=== PATIENT | female | born 2000 | race Caucasian/White ===

== ENCOUNTER 2023-07-27 17:13 | Observation (INO) | payer MEDICAID, SELFPAY ==
[2023-07-27] VITALS (37 sets, daily range): BP systolic 106–136; BP diastolic 54–95; PULSE 64–111; RESP 14–19; TEMP 36.6–37.3; O2SAT 90–100; BMI 25.9
--- NOTE | ~2023-07-27 | US_ITS ---
CORRECTED REPORT exam description [facility] 07/28/23 This report was recreated on 07/28/23. Original report was EXAMINATION: US OB <= 14 weeks fetus w TV DATE: 07/27/2023 18:20 INDICATION: Vaginal bleeding during first trimester TECHNIQUE: Real-time pelvic transabdominal and transvaginal ultrasound was performed. COMPARISON: None. FINDINGS: The uterus measures 9.5 x 4.9 x 6.2 cm. No intrauterine gestational sac is identified. There is a complex, multiseptated cystic and solid masslike area within the endometrial canal. The right ovary measures 2.8 x 1.8 x 2.4 cm. The left ovary measures 3.2 x 2.0 x 2.4 cm. There is a 1.6 x 1.1 cm hypoechoic area within the left ovary which could reflect a hemorrhagic cyst or corpus luteum. There is normal vascular flow in the ovaries. There is a moderate amount of free fluid in the left adnexa. IMPRESSION: 1. Multiseptated cystic and solid masslike area within the endometrial canal likely reflecting retained products of failed . FELT WASHING MACHINE TENDER evaluation is recommended. Reviewed, dictated and finalized at location F. MTDD IMPRESSION: 1. Multiseptated cystic and solid masslike area within the endometrial canal li reggie reflecting retained products of failed . FELT WASHING MACHINE TENDER evaluation is recomm ended.
--- NOTE | 2023-07-27 17:24 | ED.PREGNANCY ---
HPI - General Chief complaint: Vaginal Bleeding Stated complaint: vag bleed Source: patient, EMS and RN notes reviewed Mode of arrival: EMS Limitations: no limitations History of Present Illness HPI Narrative: This is 23 year old female who presents for evaluation of vaginal bleeding from miscarriage. PAtient is . She is unsure of her LMP. She states she was told 1 month ago that she was going to have miscarriage when she was evaluated at [facility]. She states that she believes she started to miscarry yesterday because she started having heaving vaginal bleeding. She reports she was evaluated at [facility] ER yesterday for her vaginal bleeding. She reports labs were drawn but she was discharged home. She reports she is passing large clots. She has continued to pass large clots today so she came to ER. She denies abdominal pain or cramping. She reports chronic dizziness due to bicuspid aortic valve. She denies any other medical problems. Related Data Allergies Allergy/AdvReac Type Severity Reaction Status Date / Time amoxicillin Allergy Nausea Verified 07/27/23 17:21 morphine AdvReac Swelling Verified 07/27/23 17:21 Review of Systems Constitutional: Constitutional: Denies weakness Cardiovascular: Cardiovascular: Denies syncope, Denies rapid heart rate, Denies irregular heart rhythm, Denies leg edema and Denies dyspnea Respiratory: Respiratory: Denies chest congestion, Denies hemoptysis, Denies excessive phlegm production and Denies dyspnea Gastrointestinal: Gastrointestinal: Denies abdominal pain, Denies hematochezia, Denies diarrhea and Denies vomiting Genitourinary: Genitourinary: Reports abnormal vaginal bleeding, Denies hematuria and Denies dysuria Musculoskeletal: Musculoskeletal: Denies joint swelling, Denies loss of height and Denies muscle weakness Neurologic: Denies syncope, Denies focal weakness and Denies weakness PMFSH Past Medical History Medical History (Updated 07/27/23 @ 19:01 by Usha Klein MD) Bicuspid aortic valve Surgical History Surgical History (Updated 07/27/23 @ 18:58 by Usha Klein MD) H/O dilation and curettage Social History Social History (Updated 07/27/23 @ 17:28 by Usha Klein MD) Smoking status: Never smoker Exam Const: General: no acute distress and alert Nutritional Appearance: well nourished Orientation/consciousness: patient oriented x3 HENMT: Head: normal to inspection Eyes: EOM: EOMs intact bilaterally Neck: Neck: normal visual inspection Chest: Chest palpation & inspection: normal inspection of the chest Resp: Effort & Inspection: normal respiratory effort Auscultation: clear to auscultation bilaterally Cardio: Rate: regular rate Rhythm: regular rhythm Heart sounds: no murmurs GI: GI Palp: Yes Soft to palpation, No Tenderness to palpation present (GI), No Guarding due to palpation present (GI) and No Rigid due to palpation Auscultation: normal bowel sounds : Speculum Exam - Vagina: vaginal bleeding (mild dark vaginal bleeding in vault, small clot in cervix os) Speculum Exam - Cervix: Cervical os closed Skin: General skin exam: normal color Rashes: no rashes Wounds: no wounds Neuro: General: patient oriented x3, moves all extremities and CN's II-XI intact bilaterally Extrem: General: normal to inspection Psych: Mental Status: mental status grossly normal Affect: Sad affect present Course Reevaluation(s) Reevaluation #1: I discussed with patient recommendations. she is agreeable to obs tonight for d and C for miscarriage. Date: 07/27/23 Time: 18:59 Consultations Consultation #1: I Discussed case with Dr. Guy patent litigation associate for OBGYN. US shows Retain products of conceptions. He recommends D and C if patient is willing. He accepts patient to his service. Date: 07/27/23 Time: 18:58 Vital Signs Vital signs: Vital Signs Pulse Rate 98 07/27/23 17:16 Respiratory Rate 18 07/27/23 17:16 Bloo
--- NOTE | 2023-07-27 17:57 | PC.NURSE ---
Pt to ultrasound.
[2023-07-27 17:58] LABS: Basophils Absolute Auto 0.1 K/mm3 (0.0-0.1); Basophils Percent Auto 0.6 % (0.2-1.2); Eosinophils Absolute Auto 0.1 K/mm3 (0-0.3); Hematocrit 36.2 % (37.0-47.0); Hemoglobin 12.1 g/dL (12.0-15.0); Immature Granulocyte Absolute 0.06 K/mm3 (0.00-0.031); Immature Granulocyte Percent A 0.5 % (0-0.5); Lymphocytes Absolute Auto 2.91 K/mm3 (0.9-3.2); Lymphocytes Percent Auto 26.5 % (18.3-44.2); Mean Corpuscular HGB Conc 33.4 g/dl (32-36); Mean Corpuscular Hemoglobin 29.8 pg (26-34); Mean Corpuscular Volume 89.2 fl (80-100); Mean Platelet Volume 11.5 fl (7.4-10.4); Monocytes Absolute Auto 0.9 K/mm3 (0.1-0.6); Monocytes Percent Auto 8.2 % (2.6-8.5); Neutrophils Percent Auto 63.2 % (45.5-73.1); Platelet Count Result 227 k/mm3 (150-375); Red Blood Count 4.06 M/mm3 (4.2-5.4); Red Cell Distribution Width 12.3 % (11.5-14.5)
[2023-07-27 18:09] LABS: Alanine Aminotransferase 20 U/L (6-35); Albumin Level 4.4 g/dL (3.5-5.1); Alkaline Phosphatase 88 U/L (38-126); Anion Gap 8 mmol/L (8-16); Aspartate Amino Transferase 28 U/L (14-36); Bilirubin,Total 1.1 mg/dL (0.2-1.3); Blood Urea Nitrogen 9 mg/dL (7-17); Carbon Dioxide 21 mmol/L (22-30); Chloride 106 mmol/L (98-107); Estimated Glomerular Filt Rate > 60; Glucose 108 mg/dL (65-110); Potassium 3.6 mmol/L (3.4-5.0); Sodium 135 mmol/L (137-145)
[2023-07-27 18:26] LABS: Beta HCG Quantitative < 2.39 mIU/ML
[2023-07-27] MEDS: SODIUM CHLORIDE 0.9% IV 1,000 ML 999 ML IV CONT (18:53)
--- NOTE | 2023-07-27 20:00 | PC.NURSE ---
Pt to room 113 per ER staff. Vital signs taken. Pt states that she has minor cramping and back pain that she rates a 1 on 1-10 scale. 1 small dime-sized spot of bright red blood noted on pad.
--- NOTE | 2023-07-27 22:18 | PM.IMHP ---
H&P: HPI History of Present Illness Date/Time: 07/27/23 22:18 Chief Complaint: Bleeding in Narrative: 23-year-old who presents to the emergency room with vaginal bleeding in . Patient has had no care in this . Patient states her last menstrual period was in February. 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 She states she was seen at [facility] in March and was told she was going to have a miscarriage. Patient never followed up with any medical provider. Patient states she started having vaginal bleeding yesterday. Patient states she has had heavy bleeding throughout the day. Patient states every time she stands she has a large gush of blood. Patient states she went to [facility] yesterday. Patient states they hien her blood and said her vital signs and hemoglobin were stable. She states she never received an ultrasound. Patient does report feeling dizzy and fatigued. Patient had an ultrasound in our emergency room which showed a multi septated cystic structure with solid components within the endometrium with solid components. Review of Systems Cardiovascular: Cardiovascular: Denies chest pain, Denies leg edema, Denies palpitations, Denies dyspnea and Denies dyspnea on exertion Respiratory: Respiratory: Denies cough, Denies dyspnea and Denies dyspnea on exertion Gastrointestinal: Gastrointestinal: Denies abdominal pain, Denies constipation, Denies diarrhea, Denies nausea and Denies vomiting Genitourinary: Genitourinary: Reports abnormal vaginal bleeding, Denies hematuria, Denies urinary frequency, Denies dysuria, Denies pelvic pain, Denies urinary incontinence and Denies vaginal discharge Neurologic: Reports system reviewed and no additional complaints, except as documented Psychiatric: Psychiatric: Reports no additional psychiatric complaints Endocrine: Endocrine: Denies palpitations PMFSH Past Medical History Medical History (Updated 07/27/23 @ 19:01 by Usha Klein MD) Bicuspid aortic valve Surgical History Surgical History (Updated 07/27/23 @ 18:58 by Usha Klein MD) H/O dilation and curettage Social History Social History (Updated 07/27/23 @ 17:28 by Usha Klein MD) Smoking status: Never smoker Meds Home Medications and Allergies Allergies Allergy/AdvReac Type Severity Reaction Status Date / Time amoxicillin Allergy Nausea Verified 07/27/23 17:21 morphine AdvReac Swelling Verified 07/27/23 17:21 Vital Signs Vital Signs - 24 hr 07/27/23 17:16 07/27/23 19:18 07/27/23 19:30 Temperature 97.8 F Pulse Rate 98 64 74 Respiratory Rate 18 14 15 Blood Pressure 136/95 H 121/74 119/58 L Pulse Oximetry 97 100 99 Oxygen Delivery Room Air 07/27/23 19:51 07/27/23 21:12 07/27/23 21:15 Temperature Pulse Rate 75 81 80 Respiratory Rate Blood Pressure 125/63 120/85 125/59 L Pulse Oximetry 95 Oxygen Delivery 07/27/23 21:17 07/27/23 21:22 07/27/23 21:27 Temperature Pulse Rate Respiratory Rate Blood Pressure Pulse Oximetry 99 94 96 Oxygen Delivery 07/27/23 21:30 07/27/23 21:32 07/27/23 21:37 Temperature Pulse Rate 84 Respiratory Rate Blood Pressure 114/55 L Pulse Oximetry 96 97 Oxygen Delivery 07/27/23 21:42 07/27/23 21:45 07/27/23 21:47 Temperature Pulse Rate 94 Respiratory Rate Blood Pressure 117/68 Pulse Oximetry 99 99 Oxygen Delivery 07/27/23 21:52 07/27/23 21:57 07/27/23 22:00 Temperature Pulse Rate 79 Respiratory Rate Blood Pressure 106/54 L Pulse Oximetry 100 98 Oxygen Delivery 07/27/23 22:02 07/27/23 22:07 07/27/23 22:12 Temperature Pulse Rate Respiratory Rate Blood Pressure Pulse Oximetry 99 99 99 Oxygen Delivery 07/27/23 22:15 07/27/23 22:17 Temperature Pulse Rate 85 Respiratory Rate Blood Pressure 117/70 Pulse Oximetry 90 Oxygen Delivery Exam Const:
[2023-07-27] MEDS: LACTATED RINGERS 1,000 ML 999 ML IV CONT (22:55)
[2023-07-27] MEDS: ceFAZolin 2 GM/D5W 50 ML 2 GM/50 ML BAG IVPB (23:29)
--- NOTE | 2023-07-27 23:35 | WPDANESEPPF ---
Anes - Initial Pre Proc Eval Procedure: Operation Date: 07/27/23 23:00 Proposed Procedures p D&C Suction and Sharp - J Luis Guy MD Date/Time: 07/27/23 23:35 Surgeon: J Luis Guy MD Pre Op Diagnosis: Missed ,Retained Products of Conception Patient Data Age: 23 Gender: F Height: Weight: 79.3 kg Last Vital Signs Temp 36.6 C 07/27/23 19:18 Pulse 88 07/27/23 22:30 Resp 15 07/27/23 19:30 BP 122/64 07/27/23 22:30 Pulse Ox 100 07/27/23 23:11 O2 Del Method Room Air 07/27/23 17:16 Allergies Allergy/AdvReac Type Severity Reaction Status Date / Time amoxicillin Allergy Nausea Verified 07/27/23 17:21 morphine AdvReac Swelling Verified 07/27/23 17:21 Laboratory Tests 07/27/23 17:45 WBC 11.0 H K/mm3 (4.5-10.0) RBC 4.06 L M/mm3 (4.2-5.4) Hgb 12.1 g/dL (12.0-15.0) Hct 36.2 L % (37.0-47.0) MCV 89.2 fl (80-100) MCH 29.8 pg (26-34) MCHC 33.4 g/dl (32-36) RDW 12.3 % (11.5-14.5) Plt Count 227 k/mm3 (150-375) MPV 11.5 H fl (7.4-10.4) Immature Gran % (Auto) 0.5 % (0-0.5) Neut % (Auto) 63.2 % (45.5-73.1) Lymph % (Auto) 26.5 % (18.3-44.2) [place] % (Auto) 8.2 % (2.6-8.5) Eos % (Auto) 1.0 % (0-4.4) Baso % (Auto) 0.6 % (0.2-1.2) Lymph # (Auto) 2.91 K/mm3 (0.9-3.2) [place] # (Auto) 0.9 H K/mm3 (0.1-0.6) Eos # (Auto) 0.1 K/mm3 (0-0.3) Baso # (Auto) 0.1 K/mm3 (0.0-0.1) Abs Immat Gran (auto) 0.06 H K/mm3 (0.00-0.031) Absolute Neuts (auto) 7.0 H K/mm3 (1.3-6.7) Absolute Nucleated RBC 0.0 K/mm3 (0.0-0.012) Nucleated RBC % 0.0 % (0.0-0.2) Sodium 135 L mmol/L (137-145) Potassium 3.6 mmol/L (3.4-5.0) Chloride 106 mmol/L (98-107) Carbon Dioxide 21 L mmol/L (22-30) Anion Gap 8 mmol/L (8-16) BUN 9 mg/dL (7-17) Creatinine 0.60 L mg/dL (0.7-1.0) Estim Creat Clear Calc Not Reportable Estimated GFR > 60 (59 - ) Glucose 108 mg/dL (65-110) Calcium 9.0 mg/dL (8.4-10.2) Total Bilirubin 1.1 mg/dL (0.2-1.3) AST 28 U/L (14-36) ALT 20 U/L (6-35) Alkaline Phosphatase 88 U/L (38-126) Total Protein 8.0 g/dL (6.3-8.2) Albumin 4.4 g/dL (3.5-5.1) Beta HCG, Quant < 2.39 mIU/ML Blood Type O Positive Antibody Screen Negative Screen TNP Baby's Blood Type Not Reportable Baby's NISHI Not Reportable Doses of RhIg Required 0 Patient hx anesthesia problems: none Family hx anesthesia problems: none Results Review: All pre-operative results and documents have been reviewed as part of the pre-operative evaluation. [facility] Past Medical History Medical History (Updated 07/27/23 @ 19:01 by Usha Klein MD) Bicuspid aortic valve Surgical History Surgical History (Updated 07/27/23 @ 18:58 by Usha Klein MD) H/O dilation and curettage Social History Social History (Updated 07/27/23 @ 17:28 by Usha Klein MD) Smoking status: Never smoker Anes - Eval Final PreProcedure Day of Procedure 07/27/23 23:35 Patient weight: overweight Heart: regular rate and rhythm Lungs: clear to auscultation Airway: Mallampati scale class II Neurological: alert and oriented Last oral intake: >/= 8 hours ASA classification: II Emergent: yes Anesthetic plan: proceed Anesthesia type and monitoring: general ETT and standard monitoring Results Review: All pre-operative results and documents have been reviewed as part of the pre-operative evaluation. Informed Consent: The patient's anesthetic plan and its attendant risks and benefits were discussed with the patient/family/POA. Questions were solicited and answers provided to the satisfaction of the patient/family/POA.
--- NOTE | 2023-07-27 23:49 | W.PM.PROC2 ---
Procedure Note - Detailed Date of Procedure 07/27/23 Pre-op Diagnosis Retained Products of Conception Post-op Diagnosis Same Procedure Performed Suction Dilation & curettage Surgeon J Luis Guy MD Anesthesia General Indications retained products of conception on US Findings intrauterine products of conception Description of Procedure The patient was taken to the operating room after a missed had been noted on on transvaginal ultrasound. The risks, benefits and alternatives of the procedure were reviewed with the patient and informed consent was obtained. The patient was taken to the OR and anesthesia was noted to be adequate. The patient was placed in the dorsolithotomy position. Pelvic exam was performed with findings noted above. The patient was prepped and draped in the usual sterile fashion. Sterile speculum was placed in the vagina and the cervix was grasped with a tenaculum. The cervix was dilated further to allow for passage of a 8 mm suction curette. The 8 mm suction curette was gently advanced to the fundus, suction was activated, and the tip was rotated while being withdrawn to clear the uterus of products. The entire procedure was performed under direct US guidance. Brisk bleeding was noted from the cervical os. This suction process was repeated multiple additional times due to the quantity of material in the uterus. The sharp curette was introduced and advanced to the fundus to remove any remaining products. The suction curette was reintroduced one final time to ensure all products had been removed. The tenaculum was removed. Good hemostasis was noted. Instrument, sponge, and sharp counts were correct. Patient tolerated the procedure well and was taken to the recovery room in stable condition. Estimated Blood Loss 450 Drains No Packing No Pathology Yes (products of conception ) Complications No immediate complications Condition Stable Disposition Floor [facility] Billing Surgery - Charge Forward: Surgery Billing
[2023-07-27] MEDS: LACTATED RINGERS 1,000 ML 30 ML IV CONT (23:53)
[2023-07-28] VITALS (226 sets, daily range): BP systolic 51–120; BP diastolic 14–78; PULSE 38–160; RESP 16–18; TEMP 36.5–36.9; O2SAT 78–100
[2023-07-28] MEDS: ONDANSETRON INJ 4 MG/2 ML VIAL IV PUSH ×3 (00:06→09:39)
[2023-07-28] MEDS: IBUPROFEN 600 MG TABLET PO (01:32)
[2023-07-28 04:32] LABS: Basophils Percent Auto 0.2 % (0.2-1.2); Eosinophils Percent Auto 0.1 % (0-4.4); Hematocrit 25.9 % (37.0-47.0); Hemoglobin 8.4 g/dL (12.0-15.0); Immature Granulocyte Absolute 0.07 K/mm3 (0.00-0.031); Immature Granulocyte Percent A 0.6 % (0-0.5); Lymphocytes Absolute Auto 0.93 K/mm3 (0.9-3.2); Mean Corpuscular HGB Conc 32.4 g/dl (32-36); Mean Corpuscular Hemoglobin 29.7 pg (26-34); Mean Corpuscular Volume 91.5 fl (80-100); Mean Platelet Volume 11.6 fl (7.4-10.4); Monocytes Absolute Auto 0.1 K/mm3 (0.1-0.6); Monocytes Percent Auto 0.8 % (2.6-8.5); Neutrophils Absolute Auto 10.5 K/mm3 (1.3-6.7); Neutrophils Percent Auto 90.3 % (45.5-73.1); Platelet Count Result 159 k/mm3 (150-375); Red Blood Count 2.83 M/mm3 (4.2-5.4); Red Cell Distribution Width 12.3 % (11.5-14.5); White Blood Count 11.6 K/mm3 (4.5-10.0)
[2023-07-28] MEDS: DOXYCYCLINE HYCLATE 100 MG TABLET 200 MG PO (07:20)
--- NOTE | 2023-07-28 07:20 | PC.NURSE ---
Patient sleeping at time of assessment (719) , the patient woke to give PO medication and to discontinue LR. At that time the patient requested to go the the bathroom, where she did void, and upon standing became very weak and nauseated. Patient then proceeded to self induce vomiting. Emesis was clear and watery, PO medication not noted within the emesis.
--- NOTE | 2023-07-28 07:38 | PC.NURSE ---
Dr Guy on unit, informed of vomiting minutes after administration of PO antibiotics. Second dose ordered to be given later this morning.
[2023-07-28] MEDS: FAMOTIDINE 20 MG/2 ML VIAL IV PUSH (09:39)
[2023-07-28] MEDS: DEXTROSE 5%/LACTATED RINGERS 1,000 ML 500 ML IV CONT (09:40)
--- NOTE | 2023-07-28 10:46 | PC.NURSE ---
Dr. Guy informed pt has been unable to eat or drink much due to continued nausea. Pt states she has a hx of motion sickness and nausea and vomiting after anesthesia. Pt also states that whenever she takes any oral antibiotics she has nausea and vomiting. Pt had a brief episode where her HR increased to 140's with her nausea and pt states her bicuspid aortic valve causes this. Unable to give Fe yet today also. Order received for Scolpolamine patch and Phenergan if that isn't effective.
--- NOTE | 2023-07-28 11:30 | PC.NURSE ---
Dr. Guy in to see pt. VS stable. Order for 1 more bag of IV fluids since pt hasn't been able to eat yet.
[2023-07-28] MEDS: SCOPOLAMINE 1.5 MG PATCH TRANSDERM (11:34)
[2023-07-28] MEDS: LACTATED RINGERS 1,000 ML 125 ML IV CONT (11:40)
--- NOTE | 2023-07-28 13:15 | PC.NURSE ---
2nd popcicle given.
[2023-07-28] MEDS: SIMETHICONE 80 MG TAB.CHEW PO (13:43)
[2023-07-28] MEDS: PROMETHAZINE HCL 25 MG/ML AMPUL 12.5 MG IV PUSH (13:43)
--- NOTE | 2023-07-28 14:15 | PC.NURSE ---
Pt is sound asleep after Phenergan.
--- NOTE | 2023-07-28 15:30 | PC.NURSE ---
Woke pt. Denies nausea at present. Broth heated up and given to pt.
[2023-07-28] MEDS: POLYSACCHARIDE IRON COMPLEX 150 MG CAPSULE PO (16:22)
--- NOTE | 2023-07-28 16:22 | PC.NURSE ---
Pt tolerated being up to bathroom without dizziness or nausea. Pt has now finished a broth and a pkg of saltines.
--- NOTE | 2023-07-28 17:10 | PC.NURSE ---
Woke pt for her to try to eat/drink more. Denies nausea. Heated up her 2nd broth for her to eat.
--- NOTE | 2023-07-28 17:25 | PC.NURSE ---
Pt drank some of her broth, but spilled the rest. Called dietary for more. No return of nausea. Pt states she feels like she is ready to go home. Offered SHARE information to pt, but she declines. Pt informed that if she should change her mind at any time, all she has to do is call the unit and we can get her connected with the program.
--- NOTE | 2023-07-28 17:27 | PC.NURSE ---
Dr. Guy informed pt has finally been able to tolerate a popcicle, broth, and saltines. Pt states she feels better and is ready to go home. MD will call in prescriptions for Niferex and Phenergan. Pt to be seen in office in 2 weeks.
--- NOTE | 2023-07-28 17:27 | PC.NURSE ---
Dr. Guy also informed the oral antibiotic hasn't been repeated today. OK to cancel order.
--- NOTE | 2023-07-28 18:25 | PM.DS ---
DS: Admitting Diagnosis Discharge Date 07/28/23 Admitting Diagnosis vaginal bleeding retained products of conception DS: Discharge Diagnosis Discharge Diagnosis (1) Retained products of conception after miscarriage: Code(s): O03.4 - Incomplete spontaneous without complication Status: Acute (2) Anemia: Code(s): D64.9 - Anemia, unspecified Status: Acute DS: Summary Hospital Course Hospital Course: 23 yo who presented with heavy vaginal bleeding. Pt reported a positive test in February. She was told she would miscarry in March. Pt never followed up with any provider. Pt started having heavy bleeding one day prior to admission. Serum Beta HCG negative. Pelvic US showed a multi-septated cystic and solid structure within the endometrium. Pt underwent suction D&C. Vaginal bleeding was controlled. Her post-op course was complicated by post-op nausea. Status at Discharge Functional status at discharge: independent ambulation Overall status at discharge: patient is progressing back to baseline Time Spent with Patient Time attestation: Total time spent providing and/or coordinating discharge services: Time spent: Greater than 30 minutes Exam Const: General: no acute distress Eyes: EOM: EOMs intact bilaterally Neck: Neck: supple Thyroid: thyroid normal Chest: Breast/axilla inspection: normal inspection of the breasts Breast/axilla palpation: normal palpation of the breasts, normal palpation of the axillae and no axillary lymphadenopathy Resp: Effort & Inspection: normal respiratory effort Auscultation: clear to auscultation bilaterally Cardio: Rate: regular rate Rhythm: regular rhythm GI: Inspection: non-distended GI Palp: Yes Soft to palpation, No Tenderness to palpation present (GI) and No Guarding due to palpation present (GI) Auscultation: normal bowel sounds : General: No bladder normal to palpation External Female Exam: normal external appearance Speculum Exam - Vagina: normal vaginal discharge and No vaginal bleeding Speculum Exam - Cervix: nontender Bimanual exam- vagina & uterus: No bladder normal to palpation and No Cervical tenderness present OB/external & speculum: No vaginal bleeding Skin: General skin exam: normal color and no rashes or lesions noted Neuro: Cognition (Neuro): normal cognition Speech: normal speech Extrem: General: normal to inspection and no edema Psych: Mental Status: mental status grossly normal Affect: normal affect DS: Data Data Completed and Pending Pending studies at discharge: Pending at discharge 07/27/23 23:42 Surgical [PTH] Routine Labs on day of discharge: Labs from last 24 hours 07/28/23 07/27/23 04:22 17:45 WBC 11.6 H RBC 2.83 L Hgb 8.4 L D Hct 25.9 L MCV 91.5 MCH 29.7 MCHC 32.4 RDW 12.3 Plt Count 159 MPV 11.6 H Immature Gran % (Auto) 0.6 H Neut % (Auto) 90.3 H Lymph % (Auto) 8.0 L [place] % (Auto) 0.8 L Eos % (Auto) 0.1 Baso % (Auto) 0.2 Lymph # (Auto) 0.93 [place] # (Auto) 0.1 Eos # (Auto) 0.0 Baso # (Auto) 0.0 Abs Immat Gran (auto) 0.07 H Absolute Neuts (auto) 10.5 H Absolute Nucleated RBC 0.0 Nucleated RBC % 0.0 Beta HCG, Quant < 2.39 Blood Type O Positive Antibody Screen Negative Screen TNP Baby's Blood Type Not Reportable Baby's NISHI Not Reportable Doses of RhIg Required 0 Discharge Plan Discharge Attending physician on discharge: J Luis Guy Discharging Clinician: J Luis Guy Patient Disposition: Home, Self-Care Activity: as tolerated and pelvic rest Diet: as tolerated Discharge Instructions: Follow-Up: Call your Dr. Guy's office for an appointment to be seen in: 2 Weeks ADDITIONAL INSTRUCTIONS: * reactor fueling supervisor prescriptions for Niferex (iron supplement) and Phenergan (medicine for nausea) and take as directed. DIET AND NUTRITION: * Eat at least 3 regular, well-balanced me
--- NOTE | 2023-07-28 18:55 | PC.NURSE ---
Pt had some more broth. Went over discharge instructions with pt. Reviewed stages of grieving. Discussed warning signs to report. Informed pt that I want to go over her discharge instructions again when her boyfriend gets here to pick her up, because he needs to know that if she should have problems with depression or thoughts of harming herself or others, that he might have to be the one to call to get help for her or take her to an emergency department. Pt states she also wants him to know about her activity restrictions so he doesn't expect her to be able to do everything at home. Leaving IV in until her arrives.
== END 2023-07-28 21:29 | disposition home or self-care (01) ==
LOC: ANHED 19:01 → ANHOBPP 19:31
PROVIDERS: Admitting Provider Student in an Organized Health Care Education/Training Program; Emergency Provider General Practice; Visit Provider Student in an Organized Health Care Education/Training Program
PROC: (CPT 59820; principal; 2023-07-27 23:00)
DX: O03.4 Incomplete spontaneous abortion without complication (principal); D64.9 Anemia, unspecified; Q23.1 Congenital insufficiency of aortic valve
CPT/HCPCS: 59820; 36415; 76801; 76817; 80053; 84702; 85025; 85461; 86850; 86900; 86901; 88305; 99285; A9270; G0378; G0379; J0690; J2405; J2550; J7030; J7120; J7121

== ENCOUNTER 2024-06-01 20:03 | Emergency (ER) | payer MEDICAID, SELFPAY ==
[2024-06-01 20:27] VITALS: BP 110/68; PULSE 89; RESP 20; TEMP 36.3; O2SAT 99
--- NOTE | 2024-06-01 20:32 | ECG_ITS ---
Test Date: 2024-06-01 20:43:41 Measurements Intervals [place] Rate: 84 P: 44 SC: 149 QRS: 39 QRSD: 91 T: 23 QT: 381 QTc: 452 Interpretive Statements SINUS RHYTHM WITH OCCASIONAL SUPRAVENTRICULAR PREMATURE COMPLEXES BORDERLINE ECG No previous ECG available for comparison Electronically Signed On 06-02-2024 09:29:28 CDT by Venancio Dale M.D.
--- NOTE | 2024-06-01 20:47 | PC.NURSE ---
Pt came up to nurses station stating she feels okay and is going to leave. Educated to come back for worsening symptoms. Pt leaves in NAD at 2044
== END 2024-06-02 06:36 | disposition left against medical advice (07) ==
PROVIDERS: Emergency Provider Student in an Organized Health Care Education/Training Program
DX: R55 Syncope and collapse (principal)
CPT/HCPCS: 82962; 93005; 99199